=== PATIENT | female | born 1950 | race African-American/Black ===

== ENCOUNTER 2018-01-09 11:38 | Emergency (ER) | payer MEDICARE, MEDICAID ==
[~2018-01-09] VITALS: Ht 167.6 cm; Wt 53.0 kg
[~2018-01-09 11:38] MED LIST: ACET-2178 PO; ALBU18HF2 INH; AMLO10TA80 PO; ASPI-867 PO; AZIT250T12 PO; BIMA2.5D4 EACHEYE; BRIM5DRO RIGHTEYE; CLON0.1T PO; CLOP75TA33 PO; DIPH25CA83 PO; DORZ10DR9 RIGHTEYE; METO-411 PO; OMEP20CA10 PO; SIMV10TA6 PO; TIMO5SOL11 LEFTEYE
[2018-01-09] MEDS ORDERED: ONDANSETRON HCL 4MG/2ML VIAL IV STA (13:57)
[2018-01-09 14:39] LABS: CHLORIDE 111 mEq/L (98-107)
[2018-01-09 14:40] LABS: BASOPHILS % 0.6 % (0.0-2.0); EOSINOPHILS % 2.3 % (0.0-5.0); HEMATOCRIT. 39.6 % (36.0-48.0); HEMOGLOBIN. 13.2 g/dL (12.0-16.0); MEAN CORPUSCULAR HEMOGLOBIN 30.3 pg (28.0-32.0); MEAN CORPUSCULAR VOLUME 90.8 fL (81.0-99.0); MEAN PLATELET VOLUME 7.2 fl (7.4-10.4); MONOCYTES % 11.4 % (2.0-8.0); NEUTROPHILS % 63.7 % (40.0-76.0); PLATELET 247 x1000/uL (130-400); RED BLOOD CELL COUNT 4.36 mill/uL (4.2-5.4); RED CELL DISTRIBUTION WIDTH 14.5 % (11.6-14.6)
[2018-01-09] MEDS ORDERED: KETOROLAC 30MG/ML VIAL IV STA (16:54)
[2018-01-09] MEDS ORDERED: SODIUM CHLORIDE 0.9% 1,000 ML IV ONE (16:54)
[2018-01-09] MEDS ORDERED: METRONIDAZOLE 500 MG PREMIX 100 ML IV ONE (17:00)
[2018-01-09] MEDS ORDERED: LEVOFLOXACIN 750MG PREMIX 150 ML IV ONE (17:00)
[2018-01-09 20:15] VITALS: BP 127/70
== END 2018-01-09 20:15 | disposition home or self-care (01) ==
LOC: ER 11:38
DX: K52.9 Noninfective gastroenteritis and colitis, unspecified (principal); I10 Essential (primary) hypertension; I25.10 Atherosclerotic heart disease of native coronary artery without angina pectoris; Z95.5 Presence of coronary angioplasty implant and graft; E78.00 Pure hypercholesterolemia, unspecified; Z87.19 Personal history of other diseases of the digestive system; Z88.8 Allergy status to other drugs, medicaments and biological substances; Z91.041 Radiographic dye allergy status; Z79.899 Other long term (current) drug therapy
CPT/HCPCS: 36415; 74176; 80053; 83690; 85025; 96365; 96368; 96375; 99285; J1885; J1956; J2405; J3490; J7030

== ENCOUNTER → 2021-12-29 | Outpatient (CLI) | payer MEDICARE, MEDICAID ==
[~2021-12-29] MED LIST changes: -ACET-2178 PO; -OMEP20CA10 PO; +OMEP20CA14 PO; -SIMV10TA6 PO; +SIMV10TA97 PO; +TOPUD PO
== END | disposition home or self-care (01) ==
LOC: US 08:13
PROVIDERS: ATTEND Internal Medicine Nephrology
DX: N18.30 Chronic kidney disease, stage 3 unspecified (principal)
CPT/HCPCS: 76770

== ENCOUNTER → 2023-10-05 | Outpatient (CLI) | payer MEDICARE, MEDICAID | END | disposition home or self-care (01) | LOC: PVL 08:30 | PROVIDERS: ATTEND Internal Medicine Geriatric Medicine | DX: I65.21 Occlusion and stenosis of right carotid artery (principal); M50.123 Cervical disc disorder at C6-C7 level with radiculopathy; M81.0 Age-related osteoporosis without current pathological fracture; M48.02 Spinal stenosis, cervical region | CPT/HCPCS: 72141; 93880 ==

== ENCOUNTER → 2023-10-07 | Outpatient (CLI) | payer MEDICARE, MEDICAID | END | disposition home or self-care (01) | LOC: MAMMO 09:09 | PROVIDERS: ATTEND Internal Medicine Geriatric Medicine | DX: M81.0 Age-related osteoporosis without current pathological fracture (principal); G90.9 Disorder of the autonomic nervous system, unspecified | CPT/HCPCS: 77080 ==

== ENCOUNTER → 2024-12-31 | Outpatient (CLI) | payer MEDICARE, MEDICAID | END | disposition home or self-care (01) | LOC: US 09:25 | PROVIDERS: ATTEND Internal Medicine Geriatric Medicine | DX: R19.05 Periumbilic swelling, mass or lump (principal) | CPT/HCPCS: 76705 ==